=== PATIENT | female | born 1965 | race Caucasian/White ===

== ENCOUNTER 2016-05-19 07:06 | Inpatient (IN) | payer MEDICAID ==
--- NOTE | 2016-05-19 07:15 | EDPHY ---
H & P Time Seen by Provider: 05/19/16 07:14 HPI/ROS: CHIEF COMPLAINT: Shortness of breath, cough. HISTORY OF PRESENT ILLNESS: The patient is a 51-year-old female who presents with shortness of breath. She has had cold symptoms for the past 2 weeks including rhinorrhea, congestion, morning headaches, productive cough, and neck ache. She has not had a fever. She woke up today feeling dizzy and short of breath. The dizziness was described as a vertiginous spinning. She admits mild associated chest tightness. She does not use oxygen at home. She did not get a flu shot this year. No chills, palpitations, vomiting, diarrhea, urinary complaints. Patient has no known history of COPD, asthma, emphysema. REVIEW OF SYSTEMS: Aside from elements discussed in the HPI, a comprehensive 10-point review of systems was reviewed and is negative. PAST MEDICAL HISTORY: Denies. SOCIAL HISTORY: Smoker, no alcohol use, no illicit drugs. VITAL SIGNS: Reviewed by me. Not hypoxic, tachycardic, or febrile. GENERAL: Thin, resting comfortably in no obvious respiratory distress. HEENT: Atraumatic. Eyes: No icterus, no injection. Mouth: moist mucous membranes. No erythema or lesions. Mild tonsillar erythema. No exudates.Neck: supple with no adenopathy. No meningismus. LUNGS: Diminished breath sounds, especially at bases. Superior wheezes and wheezy cough. No rhonchi or rales. CARDIAC: Regular rate and rhythm, no rubs, murmurs or gallops. ABDOMEN: Soft, nontender, nondistended, bowel sounds normal. BACK: No CVA tenderness. EXTREMITIES: No trauma. No edema. Range of motion is normal throughout. NEURO: Alert and oriented, grossly nonfocal. SKIN: Warm and dry, no rash. PSYCHIATRIC: Normal mentation, no agitation. Portions of this note were transcribed by a medical transcriptionist. I personally performed a history, physical exam, medical decision making, and confirmed accuracy of information the transcribed note. Smoking Status: Current every day smoker Constitutional: Initial Vital Signs Temperature (C) 36.4 C 05/19/16 07:09 Heart Rate 72 05/19/16 07:09 Respiratory Rate 20 05/19/16 07:09 Blood Pressure 127/84 H 05/19/16 07:09 O2 Sat (%) 95 05/19/16 07:09 O2 Delivery Mode Room Air Allergies/Adverse Reactions: codeine Allergy (Verified 05/19/16 07:07) Home Medications: Medication Instructions Recorded AZITHROMYCIN [Z-PACK] 250 - 500 mg PO DAILY #6 tab 05/19/16 Medical Decision Making - Diagnostics EKG Interpretation: 12-LEAD EKG: Please see the full report in [facility]. My interpretation: Sinus rhythm Imaging: X-ray chest was obtained. I viewed the images myself on the PACS system. My interpretation of the images is: possible right lower lobe infiltrate. The radiologist interpretation is early infiltrate. I discussed the x-ray findings with the patient. ED Course/Re-evaluation: 3ml IH DuoNeb as well as albuterol nebulizer treatment administered. Patient reports some improvement in her shortness of breath. Influenza negative. Chest x-ray demonstrates airways disease as well as early right lower lobe infiltrate. On re-examination patient reports feeling improved, however, she still has significant inspiratory wheezing and diminished air movement. Received ceftriaxone and azithromycin to cover for pneumonia. Lactic acid: Patient has no evidence of sepsis: no fever, not tachycardic, not tachypneic, white count 7. Patient will be admitted to the hospitalist service, ANJALI Bautista. Differential Diagnosis: Differential diagnosis for the patient's shortness of breath was considered including but not limited to pulmonary infectious processes, COPD exacerbation, pulmonary emboli, pulmonary edema, congestive heart failure, and cardiac causes. Consult/Admit Bed Type: ANJALI Villanueva - Data Points Laboratory Results: Laboratory Results 05/19/16 08:30 05/19/16 08:30 05/19/16 05/19/16 05/19/16 09:25 08:30 08:30 WBC RBC Hgb Hct MCV MCH MCHC RDW Plt Count MPV Neut % (Auto) Lymph % (Auto) Sharkey % (Auto) Eos % (Auto) Baso % (Auto) Nucleat RBC Rel Count Absolute Neuts (auto) Absolute Lymphs (auto) Absolute Monos (auto) Absolute Eos (auto) Absolute Basos (auto) Absolute Nucleated RBC Immature Gran % Immature Gran # VBG Lactic Acid 1.0 mmol/L mmol/L (0.7-2.1) Sodium 143 mEq/L mEq/L (134-144) Potassium 4.4 mEq/L mEq/L (3.5-5.2) Chloride 109 mEq/L mEq/L (97-110) Carbon Dioxide 23 mEq/l mEq/l (22-31) Anion Gap 11 mEq/L mEq/L (8-16) BUN 15 mg/dL mg/dL (7-23) Creatinine 0.6 mg/dL mg/dL (0.6-1.0) Estimated GFR > 60 Glucose 102 mg/dL H mg/dL (70-100) Calcium 9.3 mg/dL mg/dL (8.5-10.4) Total Bilirubin Pending Conjugated Bilirubin Pending Unconjugated Bilirubin Pending AST Pending ALT Pending Alkaline Phosphatase Pending Troponin I < 0.012 ng/mL ng/mL (0-0.034) NT-Pro-B Natriuret Pep 117 pg/mL pg/mL (0-125) Total Protein Pending Albumin Pending Specimen Hemolysis 110 Influenza Typ A,B (DFA) 05/19/16 05/19/16 08:30 07:29 WBC 7.33 10^3/uL 10^3/uL (3.80-9.50) RBC 4.56 10^6/uL 10^6/uL (4.18-5.33) Hgb 15.0 g/dL g/dL (12.6-16.3) Hct 43.4 % % (38.0-47.0) MCV 95.2 fL fL (81.5-99.8) MCH 32.9 pg pg (27.9-34.1) MCHC 34.6 g/dL g/dL (32.4-36.7) RDW 12.2 % % (11.5-15.2) Plt Count 220 10^3/uL 10^3/uL (150-400) MPV 8.9 fL fL (8.7-11.7) Neut % (Auto) 61.0 % % (39.3-74.2) Lymph % (Auto) 28.0 % % (15.0-45.0) Sharkey % (Auto) 8.7 % % (4.5-13.0) Eos % (Auto) 1.2 % % (0.6-7.6) Baso % (Auto) 0.8 % % (0.3-1.7) Nucleat RBC Rel Count 0.0 % % (0.0-0.2) Absolute Neuts (auto) 4.47 10^3/uL 10^3/uL (1.70-6.50) Absolute Lymphs (auto) 2.05 10^3/uL 10^3/uL (1.00-3.00) Absolute Monos (auto) 0.64 10^3/uL 10^3/uL (0.30-0.80) Absolute Eos (auto) 0.09 10^3/uL 10^3/uL (0.03-0.40) Absolute Basos (auto) 0.06 10^3/uL 10^3/uL (0.02-0.10) Absolute Nucleated RBC 0.00 10^3/uL 10^3/uL (0-0.01) Immature Gran % 0.3 % % (0.0-1.1) Immature Gran # 0.02 10^3/uL 10^3/uL (0.00-0.10) VBG Lactic Acid Sodium Potassium Chloride Carbon Dioxide Anion Gap BUN Creatinine Estimated GFR Glucose Calcium Total Bilirubin Conjugated Bilirubin Unconjugated Bilirubin AST ALT Alkaline Phosphatase Troponin I NT-Pro-B Natriuret Pep Total Protein Albumin Specimen Hemolysis Influenza Typ A,B (DFA) NEGATIVE FOR FLU (NEGATIVE) Medications Given: Discontinued Medications Albuterol (Proventil Neb) 3 ml IH EDNOW ONE Stop: 05/19/16 07:32 Last Admin: 05/19/16 07:35 Dose: 3 ml Albuterol/Ipratropium (Duoneb) 3 ml IH EDNOW ONE Stop: 05/19/16 07:20 Last Admin: 05/19/16 07:19 Dose: 3 ml Sodium Chloride (Ns) 1,000 mls @ 0 mls/hr IV ONCE ONE PRN Reason: Wide Open Stop: 05/19/16 07:45 Last Admin: 05/19/16 08:30 Dose: 1,000 mls Ceftriaxone Sodium/Dextrose (Rocephin 1 Gm (Premix)) 50 mls @ 100 mls/hr IV EDNOW ONE PRN Reason: Protocol Stop: 05/19/16 09:47 Last Admin: 05/19/16 09:33 Dose: 50 mls Methylprednisolone Sodium Succinate (Solu-Medrol) 125 mg IVP EDNOW ONE Stop: 02/14/17 07:45 Last Admin: 05/19/16 08:30 Dose: 125 mg Departure - Departure Disposition: [facility] Inpatient Acute Clinical Impression: Shortness of breath, Right lower lobe infiltrate Condition: Fair Referrals: NONE *PRIMARY CARE P,. [Primary Care Provider] - As per Instructions Prescriptions: AZITHROMYCIN [Z-PACK] 250 - 500 mg PO DAILY #6 tab Report Scribed for: Maritza Quan Report Scribed by: Pedro Weaver Date of Report: 05/19/16 Time of Report: 07:38
[2016-05-19] MEDS ORDERED: IPRATROPIUM/ALBUTEROL 3 ML DEYVIAL ONE ×2 (07:17→21:33)
[2016-05-19] MEDS ORDERED: IPRATROPIUM/ALBUTEROL 3 ML DEYVIAL IH ONE (07:19)
[2016-05-19] MEDS ORDERED: ALBUTEROL 3 ML DEYVIAL IH ONE (07:31)
[2016-05-19] MEDS ORDERED: ALBUTEROL 3 ML DEYVIAL ONE (07:32)
[2016-05-19] MEDS ORDERED: NS 1,000 ML IV ONE (07:44)
[2016-05-19] MEDS ORDERED: methylPREDNISolone SOD SUCC 125 MG/2 ML VIAL IVP ONE (07:44)
--- NOTE | 2016-05-19 08:25 | CPEKG ---
Heart Rate: 60 RR Interval: 1000 P-R Interval: 196 QRSD Interval: 92 QT Interval: 464 QTC Interval: 464 P [place]: 36 QRS [place]: 62 T Wave [place]: 58 EKG Severity - NORMAL ECG - EKG Impression: SINUS RHYTHM Electronically Signed By: Maritza Quan 19-May-2016 21:53:58
[2016-05-19 08:41] LABS: % IMMATURE GRANULYOCYTES 0.3 % (0.0-1.1); ABSOLUTE IMMATURE GRANULOCYTES 0.02 10^3/uL (0.00-0.10); ADD DIFF? NO; ADD MORPH? NO; ADD SCAN? NO; ATYPICAL LYMPHOCYTE FLAG 0 (0-99); FRAGMENT RBC FLAG 0 (0-99); HEMATOCRIT 43.4 % (38.0-47.0); LEFT SHIFT FLG 0 (0-99); LIPEMIA HEMOLYSIS FLAG 90 (0-99); MEAN CELL HEMOGLOBIN 32.9 pg (27.9-34.1); MEAN CELL HEMOGLOBIN CONCENTR. 34.6 g/dL (32.4-36.7); MEAN CELL VOLUME 95.2 fL (81.5-99.8); MEAN PLATELET VOLUME 8.9 fL (8.7-11.7); PLATELET CLUMPS FLAG 10 (0-99); PLATELET COUNT 220 10^3/uL (150-400); RED BLOOD CELL COUNT 4.56 10^6/uL (4.18-5.33); RED CELL DISTRIBUTION WIDTH 12.2 % (11.5-15.2)
--- NOTE | 2016-05-19 08:59 | DX ---
Upright PA and Lateral Chest, 2 Views Total, at 8:09 AM Clinical History: 51-year-old female with shortness of breath and possible pneumonia. ICD 10 Diagnostic Code: R05. Comparison Study: None. Findings: There is mild alfonzo- and infrahilar bronchial wall thickening. At the posterior medial righ t lung base there is more focal bronchovascular crowding, which may reflect some subsegmental atelec tasis or an early infiltrate. The cardiac and mediastinal silhouette size is normal. There is no ple ural effusion, peripheral interstitial edema, or pneumothorax. The osseous structures are age-approp riate. Impression: Perihilar bronchitis with a possible early infiltrate versus subsegmental atelectasis in the posterior medial right lower lobe.
[2016-05-19] MEDS ORDERED: AZITHROMYCIN IV 500 MG in D5W 250 ML IV ONE (09:18)
[2016-05-19 09:23] LABS: ANION GAP 11 mEq/L (8-16); CALCIUM 9.3 mg/dL (8.5-10.4); CARBON DIOXIDE 23 mEq/l (22-31); CHLORIDE 109 mEq/L (97-110); CREATININE 0.6 mg/dL (0.6-1.0); GLOMERULAR FILTRATION RATE > 60; GLUCOSE 102 mg/dL (70-100); POTASSIUM 4.4 mEq/L (3.5-5.2); SODIUM 143 mEq/L (134-144); SPECIMEN HEMOLYSIS 110
[2016-05-19 09:30] LABS: TROPONIN I < 0.012 ng/mL (0-0.034)
[2016-05-19] MEDS ORDERED: ONDANSETRON 4 MG/2 ML VIAL IVP PRN (09:58)
[2016-05-19] MEDS ORDERED: ALBUTEROL 3 ML DEYVIAL IH PRN (09:58)
[2016-05-19] MEDS ORDERED: ONDANSETRON DISINTEGRATING 4 MG TAB PO PRN (09:58)
[2016-05-19] MEDS ORDERED: NS 1,000 ML IV SCH (10:00)
[2016-05-19 10:03] LABS: ALANINE AMINOTRANSFERASE 49 IU/L (9-52); ALBUMIN 4.2 g/dL (3.5-5.0); ALKALINE PHOSPHATASE 66 IU/L (38-126); ASPARTATE AMINOTRANSFERASE 44 IU/L (14-46); BILIRUBIN,TOTAL 0.8 mg/dL (0.1-1.4); BILIRUBIN-CONJUGATED 0.5 mg/dL (0.0-0.5); BILIRUBIN-UNCONJUGATED 0.3 mg/dL (0.0-1.1); TOTAL PROTEIN 7.9 g/dL (6.3-8.2)
--- NOTE | 2016-05-19 10:27 | GHP ---
[f rep st] HISTORY AND PHYSICAL DATE OF ADMISSION: 05/19/2016 CHIEF COMPLAINT: Shortness of breath. HISTORY OF PRESENT ILLNESS: This is a 51-year-old female, who has had about 2 weeks of symptoms of upper and lower respiratory infection including headaches, runny nose, sore throat, productive cough . She has not had any fevers. Today, she woke up, feeling more short of breath and wheezing thus s he presented to the emergency department. She is a current smoker about half pack a day. She does not have any history of known lung disease. She did not take any [id number] cold medications for her symptoms. In the emergency department, she received breathing treatments and Solu-Medrol, f elt better afterwards. PAST MEDICAL/SURGICAL HISTORY: One episode of pneumonia which required hospitalization. MEDICATIONS: Please see medication reconciliation. ALLERGIES: Codeine causes her to itch. FAMILY HISTORY: She does not know her family well but does not think there is any lung disease SOCIAL HISTORY: She is currently working in the [employer] program. She quit drinking e ntirely. She smokes about half pack a day but declines a nicotine patch. REVIEW OF SYSTEMS: A 10-point review of systems is conducted and is negative except per HPI. PHYSICAL EXAM: VITAL SIGNS: Blood pressure is 103/67, heart rate 63, respiration rate 18, saturati ng 95% on room air, temperature 36.4. GENERAL: The patient is a pleasant female who appears uncomf ortable, coughing, otherwise in some mild distress. HEENT: Shows her to be normocephalic, atraumat ic. She is wearing a mask. NECK: Shows her to have no cervical lymphadenopathy. CARDIOVASCULAR: Regular rate and rhythm. No murmurs, rubs, or gallops. She has mildly muffled S1-S2. PULMONARY: S hows her to be in mild respiratory distress. She has inspiratory and expiratory wheezes. She has d iffuse breath movement. She does not have any rales or rhonchi. ABDOMEN: Soft, nontender, nondist ended. SKIN: Shows no rash. : Exam shows no [place]. NEUROLOGIC: Exam shows her to be alert an d oriented x3. She is moving all extremities. PSYCHIATRIC: Exam shows normal mood and affect. LABS: White count is normal at 7.33. Lactate is 1.0. Basic metabolic panel is unremarkable. LFTs are pending. Troponin is negative. She is negative for flu. DATA: 1. Chest x-ray, which I personally viewed and interpreted, shows mild right lower lobe pneumonia. 2. EKG, which I personally reviewed and interpreted, shows sinus rhythm. There are no acute ischem ic changes. This is normal. 3. I discussed this with Dr. Quan, she is negative for influenza. Will plan to admit for obser vation. IMPRESSION AND PLAN: This is a 51-year-old female with likely right lower lobe pneumonia. 1. Possible right lower lobe pneumonia: Notably no white count or fever though she does have an in filtrate on her x-ray. Given her symptoms I think it is reasonable to treat her for community-acqui red pneumonia. She has a history of tobacco use. Will also treat for chronic obstructive pulmonary disease exacerbation with her wheezes and diminished air movement. Plan will be to treat her with Rocephin, azithromycin, prednisone, nebulizer treatments. 2. Chronic obstructive pulmonary disease exacerbation: This is suspected. She is not hypoxic. Tr eatment as above. 3. Tobacco use: Declined nicotine patch. I have counseled her on cessation. 4. Core status: She is full code, full tube. She would like Radha Samuels or her marketing sales consultant to ma ke decisions for her should she not be able to. She does not have a living will. 5. Venous thromboembolism risk: She is low risk as obs. Would consider starting if she has a prol onged hospitalization. /[id number]/MODL
[2016-05-19] MEDS: IPRATROPIUM/ALBUTEROL 3 ML DEYVIAL IH SCH ×3 (12:13→21:42)
[2016-05-19] MEDS: ACETAMINOPHEN 325 MG TAB PO PRN ×2 (12:51→19:29)
[2016-05-19] MEDS: guaiFENesin 600 MG TAB.ER PO SCH ×2 (12:52→19:29)
[2016-05-19] MEDS: predniSONE 20 MG TAB PO SCH (12:52)
[2016-05-20] MEDS: IPRATROPIUM/ALBUTEROL 3 ML DEYVIAL IH SCH ×4 (05:40→21:18)
[2016-05-20 05:43] LABS: % IMMATURE GRANULYOCYTES 0.3 % (0.0-1.1); ABSOLUTE IMMATURE GRANULOCYTES 0.04 10^3/uL (0.00-0.10); ADD DIFF? NO; ADD MORPH? NO; ADD SCAN? NO; ATYPICAL LYMPHOCYTE FLAG 10 (0-99); FRAGMENT RBC FLAG 0 (0-99); LEFT SHIFT FLG 0 (0-99); LIPEMIA HEMOLYSIS FLAG 90 (0-99); MEAN CELL HEMOGLOBIN 33.1 pg (27.9-34.1); MEAN CELL HEMOGLOBIN CONCENTR. 35.1 g/dL (32.4-36.7); MEAN CELL VOLUME 94.1 fL (81.5-99.8); MEAN PLATELET VOLUME 9.4 fL (8.7-11.7); PLATELET CLUMPS FLAG 20 (0-99); PLATELET COUNT 229 10^3/uL (150-400); RED BLOOD CELL COUNT 3.93 10^6/uL (4.18-5.33)
[2016-05-20 06:08] LABS: ANION GAP 7 mEq/L (8-16); CARBON DIOXIDE 21 mEq/l (22-31); CHLORIDE 111 mEq/L (97-110); CREATININE 0.6 mg/dL (0.6-1.0); GLOMERULAR FILTRATION RATE > 60; GLUCOSE 114 mg/dL (70-100); POTASSIUM 4.4 mEq/L (3.5-5.2); SODIUM 139 mEq/L (134-144)
[2016-05-20] MEDS: guaiFENesin 600 MG TAB.ER PO SCH ×2 (10:49→19:49)
[2016-05-20] MEDS: predniSONE 20 MG TAB PO SCH (10:49)
[2016-05-20] MEDS: AZITHROMYCIN 250 MG TAB PO SCH (10:49)
--- NOTE | 2016-05-20 15:01 | HOSPPROG ---
Hospitalist Progress Note Assessment/Plan: 51 yo F with hx of copd presenting with pna and copd exacerbation # pna: on personal review of cxr noted to have RLL pna, started on ctx/ azithromycin and clinically improved slightly overnight. Continues to have significant fatigue and sob with even minimal exertion however. Will continue current mgmt, transition to oral abx in am # copd with acute exacerbation: no prior known hx of copd however longstanding tobacco use history and patient noted to have wheeze on arrival, this has improved, continue current regimen including nebs and short course of prednisone # leukocytosis: likely driven by steroids, monitoring # dispo: dc home # patient new to my care, old records reviewed and summarized as above IP status, not safe for dc home given significant dyspnea on exertion Subjective: no significant overnight events, patient still feeling run down Objective: Vital Signs Temp Pulse Resp BP Pulse Ox 36.8 C 74 14 117/76 94 05/20/16 11:22 05/20/16 11:22 05/20/16 11:22 05/20/16 11:22 05/20/16 11:22 Laboratory Results 05/20/16 04:39 05/20/16 04:39 05/19/16 05/20/16 05/21/16 05:59 05:59 05:59 Intake Total 1550 Balance 1550 awake alert nad anicteric op clear rrr no mrg dec bs throughout soft nt nd no cce warm dry well perfused ICD10 Worksheet Patient Problems: Problems Problem Status Onset Shortness of breath Acute
[2016-05-21] MEDS: IPRATROPIUM/ALBUTEROL 3 ML DEYVIAL IH SCH ×4 (05:57→21:45)
[2016-05-21] MEDS: AZITHROMYCIN 250 MG TAB PO SCH (08:17)
[2016-05-21] MEDS: guaiFENesin 600 MG TAB.ER PO SCH ×2 (08:17→20:26)
[2016-05-21] MEDS: predniSONE 20 MG TAB PO SCH (08:17)
[2016-05-21] MEDS ORDERED: BENZONATATE 100 MG CAP PO PRN (10:22)
[2016-05-21] MEDS ORDERED: NAPROXEN SODIUM 220 MG TAB PO PRN (10:22)
[2016-05-21] MEDS: CETIRIZINE 10 MG TAB PO SCH (12:02)
--- NOTE | 2016-05-21 17:30 | HOSPPROG ---
Hospitalist Progress Note Assessment/Plan: Assessment/Plan: 51 yo F p/w acute copd exacerbation in setting of RLL pneumonia # pna: evidenced by RLL infiltrate on cxr (personally interpreted) w/ pulm sx, D #2/5 ctx/azithromycin # copd with acute exacerbation: no prior known hx of copd however longstanding tobacco use history and patient noted to have wheeze on arrival - remains significantly wheezy w/ bronchial breath sounds, unresolved/unstable - cont scheduled duonebs, cont D#2/5 prednisone, add tessalon PRN/cetirizine diet. regular ppx. low risk, SCDs code. full dispo. ADD 05/22, pending clinical stabilization of above, COPD clinically unresolved at this time Subjective: Patient reports that she still feels symptomatically weak, short of breath, wheezing Objective: Vital Signs Temp Pulse Resp BP Pulse Ox 36.8 C 84 18 112/83 H 94 05/21/16 08:00 05/21/16 11:20 05/21/16 11:20 05/21/16 08:00 05/21/16 11:20 05/20/16 05/21/16 05/22/16 05:59 05:59 05:59 Intake Total 250 Balance 250 - Pending Discharge Pending Discharge Within 24 Hours: Yes Pending Discharge Date: 05/22/16 Pending Discharge Time: 11:00 - Physical Exam Constitutional: appears nourished, not in pain, chronically ill appearing, uncomfortable Cardiovascular: regular rate and rhythym, no murmur, rub, or gallop Respiratory: expiratory wheeze, bronchial breath sounds, rhonchi (Right base on inspiration), No inspiratory crackles Gastrointestinal: normoactive bowel sounds, soft, non-tender abdomen, no palpable masses Neurologic: AAOx3, sensation intact bilaterally, No facial droop Psychiatric: interacting appropriately, not anxious, not encephalopathic, thought process linear ICD10 Worksheet Patient Problems: Problems Problem Status Onset Shortness of breath Acute
[2016-05-21] MEDS ORDERED: IPRATROPIUM/ALBUTEROL 3 ML DEYVIAL IH PRN (22:10)
[2016-05-22 08:44] VITALS: BP 121/89; PULSE 61; RESP 18; TEMP 97.4; O2SAT 93
[2016-05-22] MEDS: CETIRIZINE 10 MG TAB PO SCH (09:14)
[2016-05-22] MEDS: predniSONE 20 MG TAB PO SCH (09:14)
[2016-05-22] MEDS: guaiFENesin 600 MG TAB.ER PO SCH (09:14)
[2016-05-22] MEDS: AZITHROMYCIN 250 MG TAB PO SCH (09:15)
[2016-05-22] MEDS ORDERED: ALBUTEROL 60 PUFFS/8 GM MDI IH PRN (10:32)
--- NOTE | 2016-05-22 10:41 | PDDCSUM ---
Discharge Summary Discharge Summary: DISCHARGE SUMMARY FOLLOW-UP ITEMS: Establish primary care, get outpatient pulmonary function tests DATE OF ADMISSION: 05/19/2016 DATE OF DISCHARGE: 05/22/2016 DISCHARGE DIAGNOSES: 1. Acute COPD exacerbation 2. Pneumonia CONSULTATIONS: None PROCEDURES / IMAGING: Chest x-ray demonstrating right lower lobe infiltrate CHIEF COMPLAINT: Shortness of breath SUBJECTIVE: Patient feels like her shortness of breath has improved, cough improved PHYSICAL EXAM ON DISCHARGE: Systolic blood pressure is 1/10, heart rate 60, afebrile overnight, satting well on room air, faint inspiratory wheezes in the bilateral bases right greater than left, with faint expiratory wheezes bilateral mid posterior segments but no bronchial breath sounds improved air movement from day prior LABS ON DISCHARGE: None HOSPITAL COURSE BY PROBLEM: 1. Acute COPD exacerbation. Patient has no prior history of COPD however she has longstanding tobacco use history and she was noted to have significant wheeze and bronchial breath sounds on arrival. She was initiated on prednisone , scheduled duo nebs, antibiotics and she continued to experience significant wheezing and bronchial breath sounds on 05/21. After continuing treatment, her air movement has improved and she can follow up at [facility] and undergo outpatient pulmonary function testing. We also recommend that she discontinue her smoking and continue to work on this as an outpatient. 2. Acute pneumonia. Evidenced by right lower lobe infiltrate on chest x-ray in addition to pulmonary symptoms. This is most likely precipitating cause of her COPD exacerbation. Patient was initiated on IV ceftriaxone and azithromycin, she has been transitioned to oral levofloxacin therapy. She will continue antibiotic for a total 5 day burst. DISCHARGE MEDICATIONS: Please see official discharge medication reconciliation sheet in chart , levofloxacin 750 once daily, prednisone 40 mg once daily, albuterol inhaler as needed, Tessalon Perles as needed. DISCHARGE INSTRUCTIONS: Patient should discontinue smoking and [facility] as scheduled.
== END 2016-05-22 12:35 | disposition home or self-care (01) | DRG 194 ==
LOC: F3E 11:02 → OBSVTOIN 05-20 14:51 → INTOOBSV 05-20 14:57
PROVIDERS: ADMIT Student in an Organized Health Care Education/Training Program; ATTEND Student in an Organized Health Care Education/Training Program
DX: J18.9 Pneumonia, unspecified organism (principal); J44.1 Chronic obstructive pulmonary disease with (acute) exacerbation; Z72.0 Tobacco use
CPT/HCPCS: 96365; G0378; J0456; J0696

== ENCOUNTER 2016-06-18 21:14 | Emergency (ER) | payer OTHER, MEDICAID ==
[2016-06-18 21:24] VITALS: BP 123/75; PULSE 75; RESP 20; TEMP 98.4; O2SAT 95
[2016-06-18] MEDS ORDERED: SKIN ADHESIVE (DERMABOND) 1 EACH TP ONE (21:43)
--- NOTE | 2016-06-18 22:08 | EDPHY ---
H & P Time Seen by Provider: 06/18/16 21:36 HPI/ROS: This is a 50 year old female presenting to emergency department complaining of thumb laceration. 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 Tetanus vaccine up-to-date. Denies any other complaints REVIEW OF SYSTEMS: Constitutional: (-)fever Cardiac: (-)chest pain Musculoskeletal: (+)right thumb laceration Skin: (+)right thumb laceration Neurological: (-) headache Psych: (-)anxiety (-)SI/HI Smoking Status: Current every day smoker Physical Exam: CONSTITUTIONAL: patient appeared well nourished, non-ill appearing and normally developed. No acute distress. Vital signs as documented. HEENT: NCAT NECK: FROM RESP: Non-labored resp effort NEURO: AAOx3 EXTREMITIES: (+)superficial avulsion laceration tip of right thumb non- suturable (+)FROM without difficulty. (+)cms intact SKIN: (+)superficial avulsion laceration tip of right thumb non-suturable (+) FROM without difficulty. (+)cms intact PSYCH: Normal affect, calm, no distress Constitutional: Initial Vital Signs Temperature (C) 36.9 C 06/18/16 21:21 Heart Rate 75 06/18/16 21:21 Respiratory Rate 20 06/18/16 21:21 Blood Pressure 123/75 H 06/18/16 21:21 O2 Sat (%) 95 06/18/16 21:21 O2 Delivery Mode Room Air Allergies/Adverse Reactions: codeine Allergy (Verified 05/19/16 07:07) Home Medications: Medication Instructions Recorded Naproxen Sodium [Aleve 220 MG (*)] 220 - 440 mg PO BID PRN 05/19/16 Acetaminophen [Tylenol 325mg (*)] 650 mg PO Q4HRS PRN #0 tab 05/22/16 Albuterol [Proventil Inhaler HFA 2 puffs IH Q4HRS PRN #1 mdi 05/22/16 (*)] Benzonatate [Tessalon Pearles] 200 mg PO TID PRN #30 cap 05/22/16 Cetirizine [ZyrTEC 10 mg (*)] 10 mg PO DAILY tab 05/22/16 levOFLOXACIN [Levofloxacin] 750 mg PO DAILY #1 tablet 05/22/16 predniSONE 40 mg PO DAILY #2 tablet 05/22/16 Medical Decision Making Procedures: Procedure: Laceration repair dermabond Verbal consent was obtained from the patient . superficial laceration on the right tip of thumb. The wound was irrigated. There were no deep structures involved. The wound was repaired using dermabond. The procedure was performed by myself. A dressing was applied by nurse ED Course/Re-evaluation: This is a 50 year old female presenting to emergency department complaining of thumb laceration. 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 Tetanus vaccine up-to-date. Discussed plan of care: Wound irrigation, wound repair with Dermabond. Clinical impression thumb laceration, other differential diagnosis considered but not limited to thumb dislocation, nail bed laceration and tendon laceration Differential Diagnosis: Clinical impression thumb laceration, other differential diagnosis considered but not limited to thumb dislocation, nail bed laceration and tendon laceration Departure - Departure Disposition: Home, Routine, Self-Care Clinical Impression: Thumb laceration Qualifiers: Encounter type: initial encounter Laterality: right Qualified Code(s): S61.011A - Laceration without foreign body of right thumb without damage to nail , initial encounter Condition: Good Instructions: Laceration (ED), Skin Adhesive Care (ED) Additional Instructions: Discussed discharge instructions 1. The initial dressing on for 24 hours, then daily dressing changes for the next 3-5 days 2. Monitor for any signs of infection such as: Increased redness red streak swelling drainage, if any of these should occur please return emergency department 3. No antibiotics are needed at this time, and as you indicated her tetanus shot is up-to-date 4. you can take ibuprofen as needed 600 mg every 6-8 hours as needed 5. you had been given the number for [facility] you can follow up with the clinic as needed. Patient verbalized understanding of discharge instructions Referrals: NONE *PRIMARY CARE P,. [Primary Care Provider] - As per Instructions [facility],. [Clinic] - As per Instructions Stand Alone Forms: Work Excuse
== END 2016-06-18 22:15 | disposition home or self-care (01) ==
PROC: 0HQFXZZ Repair Right Hand Skin, External Approach (ICD-10-PCS; principal; 2016-06-18)
DX: S61.011A Laceration without foreign body of right thumb without damage to nail, initial encounter (principal); F17.200 Nicotine dependence, unspecified, uncomplicated; W26.0XXA Contact with knife, initial encounter; Y92.000 Kitchen of unspecified non-institutional (private) residence as the place of occurrence of the external cause; Y93.89 Activity, other specified

== ENCOUNTER 2016-08-12 15:42 | Emergency (ER) | payer MEDICAID, OTHER ==
[2016-08-12 15:47] VITALS: BP 135/98; PULSE 81; RESP 20; TEMP 98.2; O2SAT 96
--- NOTE | 2016-08-12 15:51 | EDPHY ---
H & P Time Seen by Provider: 08/12/16 15:49 HPI/ROS: CHIEF COMPLAINT: Low back pain HISTORY OF PRESENT ILLNESS: This patient is a 51 year old female who presents to the Emergency Department complaining of acute low back pain beginning five days prior to arrival and remaining constant over time. 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 She denies radiation of pain or paresthesias to her legs. No bowel or urinary complaints. She reports a remote history of lower back pain 21 years ago. No additional pertinent medical history. REVIEW OF SYSTEMS: Constitutional: No fever, no chills Eyes: No visual changes ENT: No sore throat Respiratory: No cough, no shortness of breath Cardiac: No chest pain Gastrointestinal: No nausea, no vomiting, no abdominal pain Genitourinary: No hematuria, no dysuria Musculoskeletal: +low back pain, no leg pain or swelling Skin: No rash Neurological: No headache, no numbness, no weakness Psychiatric: No depression Past Medical/Surgical History: Remote history of low back pain. No current PCP. 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 Smoking Status: Current every day smoker Physical Exam: General Appearance: Alert, appears in pain with movement Eyes: Pupils equal and round, no conjunctival pallor ENT, Mouth: Mucous membranes moist Neck: Normal inspection Back: Paraspinous lumbar tenderness to palpation Gastrointestinal: Abdomen is soft and non- tender Neurological: A&O, motor 5/5 including dorsiflexion of the feet and 1st toes, 2 + patellar reflexes bilaterally, slow and steady gait, appears in pain with walking Skin: Warm and dry, no rash Extremities: Nontender, no pedal edema Psychiatric: Mood and affect normal Constitutional: Initial Vital Signs Temperature (C) 36.8 C 08/12/16 15:43 Heart Rate 81 08/12/16 15:43 Respiratory Rate 20 08/12/16 15:43 Blood Pressure 135/98 H 08/12/16 15:43 O2 Sat (%) 96 08/12/16 15:43 O2 Delivery Mode Room Air Allergies/Adverse Reactions: codeine Allergy (Verified 02/14/17 07:07) Home Medications: Medication Instructions Recorded Naproxen Sodium [Aleve 220 MG (*)] 220 - 440 mg PO BID PRN 05/19/16 Acetaminophen [Tylenol 325mg (*)] 650 mg PO Q4HRS PRN #0 tab 05/22/16 Albuterol [Proventil Inhaler HFA 2 puffs IH Q4HRS PRN #1 mdi 05/22/16 (*)] Benzonatate [Tessalon Pearles] 200 mg PO TID PRN #30 cap 05/22/16 Cetirizine [ZyrTEC 10 mg (*)] 10 mg PO DAILY tab 05/22/16 levOFLOXACIN [Levofloxacin] 750 mg PO DAILY #1 tablet 05/22/16 predniSONE 40 mg PO DAILY #2 tablet 05/22/16 Cyclobenzaprine [Flexeril 10 MG 10 mg PO TID PRN #15 tab 08/12/16 (*)] Medical Decision Making ED Course/Re-evaluation: This 51 year old female presents with acute low back pain beginning Wednesday and remaining persistent over time without associated paresthesias or additional complaints. She has paraspinous lumbar tenderness on exam and appears in pain with walking and movement. I discussed with her appropriate management of low back strain at home, including: Ibuprofen use three times daily, Lidoderm patch, and Flexeril. She expresses agreement to this treatment plan. She will schedule a follow-up appointment with [facility] for further evaluation and long-term treatment options. 1000mg PO Tylenol administered and Lidoderm patch placed prior to discharge. Differential Diagnosis: The differential diagnosis for the patient's back pain included but was not limited to musculoskeletal pain, epidural abscess, herniated disk, spinal fracture, and intra-abdominal causes including urinary system. - Data Points Medications Given: Discontinued Medications Acetaminophen (Tylenol) 1,000 mg PO EDNOW ONE Stop: 08/12/16 16:11 Last Admin: 08/12/16 16:28 Dose: 1,000 mg Lidocaine (Lidoderm 5%) 1 ea TD EDNOW ONE Stop: 08/13/16 16:12 Last Admin: 08/12/16 16:29 Dose: 1 ea Departure - Departure Disposition: Home, Routine, Self-Care Clinical Impression: Low back strain Qualifiers: Encounter type: initial encounter Qualified Code(s): S39.012A - Strain of muscle, fascia and tendon of lower back, initial encounter Condition: Good Instructions: Low Back Strain (ED) Additional Instructions: 1. Take 3 tablets of Ibuprofen three times daily (every 6 hours) for pain. 2. Use the Lidoderm patch as prescribed for pain. 3. Take Flexeril as prescribed, as needed to relax your muscles. This causes drowsiness, so avoid taking this when working or driving. 4. Follow-up with a primary care provider for further evaluation. You can be seen at [facility]. 5. Return to the Emergency Department with severe pain, loss of bladder or bowel control, numbness or tingling in your legs, or for other serious concerns. Referrals: [facility],. [Clinic] - As per Instructions Prescriptions: Cyclobenzaprine [Flexeril 10 MG (*)] 10 mg PO TID PRN #15 tab PRN Reason: Spasms Report Scribed for: Cathy Jean-Baptiste Report Scribed by: Bobbi Riley Date of Report: 08/12/16 Time of Report: 15:51 Physician Review and Approval Statement: 08/12/16 15:51 Portions of this note were transcribed by a resident medical officer. I personally performed a history, physical exam, medical decision making, and confirmed accuracy of information the transcribed note.
[2016-08-12] MEDS ORDERED: ACETAMINOPHEN 325 MG TAB PO ONE (16:10)
[2016-08-12] MEDS ORDERED: LIDOCAINE 5% 1 EA PATCH TD ONE (16:16)
[2016-08-12] MEDS ORDERED: ACETAMINOPHEN 500 MG TAB ONE (16:16)
[2016-08-13] MEDS ORDERED: LIDOCAINE 5% 1 EA PATCH TD ONE (16:11)
== END 2016-08-12 16:29 | disposition home or self-care (01) ==
DX: S39.012A Strain of muscle, fascia and tendon of lower back, initial encounter (principal); F17.200 Nicotine dependence, unspecified, uncomplicated; X58.XXXA Exposure to other specified factors, initial encounter; Y93.89 Activity, other specified

== ENCOUNTER 2017-02-03 08:35 | Emergency (ER) | payer MEDICAID, OTHER ==
[2017-02-03 08:41] VITALS: TEMP 97.7
[2017-02-03] MEDS ORDERED: IPRATROPIUM/ALBUTEROL 3 ML DEYVIAL IH ONE (09:07)
--- NOTE | 2017-02-03 09:21 | EDPHY ---
General - History Smoking Status: Current every day smoker Narrative: CHIEF COMPLAINT: Cough, congestion, wheezing, shortness of breath HISTORY OF PRESENT ILLNESS: Patient complains of several days duration of cough, wheezing, congestion, shortness of breath, body aches, fevers and chills. Sudden onset. Constant duration. She has tried Robitussin [id number] with no improvement. Symptoms are moderate to severe. Worse in the morning and when laying down. Minimal improvement throughout the day. No actual chest pain. No dyspnea or syncope. No abdominal urinary complaints. She does have a runny nose and sinus congestion with some sore throat no other associated complaints or modifying factors. REVIEW OF SYSTEMS: Ten systems reviewed and are negative unless otherwise noted in the HPI PCP: None SPECIALISTS: None PAST MEDICAL HISTORY: Hepatitis C without treatment PAST SURGICAL HISTORY: None SOCIAL HISTORY: Daily smoker. Occasional alcohol. Occasional marijuana user. No other illicit substances FAMILY HISTORY: Noncontributory EXAMINATION General Appearance: Alert, no distress Head: normocephalic, atraumatic Eyes: Pupils equal and round, no conjunctival pallor or injection ENT, Mouth: Mucous membranes moist. Uvula midline. Maxillary ridge is edentulous. Minimal posterior erythema. No exudate. No edema. The airway is widely patent Neck: Normal inspection, supple, non-tender. Midline trachea Respiratory: Scattered but symmetric wheezing. Mild rhonchi. No crackles. No consolidation. No diminishment. No retractions or distress Cardiovascular: Regular rate and rhythm doc Gastrointestinal: Abdomen is soft and nontender Back: non-tender, no bony abnormalities Neurological: A&O, nonfocal, normal gait Skin: Warm and dry, no rash. No petechiae Extremities: Nontender, no pedal edema Psychiatric: Mood and affect normal DIFFERENTIAL DIAGNOSES: Including but not limited to community-acquired pneumonia, bronchitis, influenza , viral infection, upper respiratory infection MDM: 9:05 a.m. Cough, congestion, wheezing, body aches for several days. No chest pain. No shortness of breath. Vital signs are stable. She is in no acute distress. She is wheezing, thus I have ordered a DuoNeb treatment. I have ordered a flu swab. She does not require supplemental oxygen. Do not feel she warrants laboratory studies at this time. Chest x-ray is pending. 9:40 a.m. Patient re-evaluated. Lungs are improved after the nebulizer treatment but is now less wheezing. She states that she is feeling much better. Chest x-ray does not show any evidence of pneumonia. There is evidence of bronchitis and atelectasis. Influenza swab pending. 10:05 a.m. Influenza swabs are negative. This is likely acute bronchitis. Vitals remain clear. Given that she is a smoker, we discussed treatment with antibiotics. We discussed another dose of Decadron tomorrow, with 1st dose given here. She has an albuterol inhaler. 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 We discussed strict ED precautions. We discussed follow up with primary care physician in the next few days. She is comfortable this plan and discharged in stable condition. (Mukesh Marin) Medical Decision Making: PHYSICIAN DOCUMENTATION: The patient was evaluated and managed by the Physician Inspector Glass Or Mirror. My co- signature indicates that I have reviewed this chart and I agree with the findings and plan of care as documented. I am the secondary supervising physician. (Isac Mills) - Diagnostics Imaging Results: Imaging Impressions Chest X-Ray 02/03/17 09:07 Impression: Bronchitis and minimal bibasilar atelectasis. No pneumonia. - Objective Vital Signs: Initial Vital Signs Temperature (C) 36.5 C 02/03/17 08:39 Heart Rate 63 02/03/17 08:39 Respiratory Rate 18 02/03/17 08:39 Blood Pressure 125/76 H 02/03/17 08:39 O2 Sat (%) 96 02/03/17 08:39 O2 Delivery Mode Room Air Allergies/Adverse Reactions: codeine Allergy (Verified 02/03/17 08:37) Home Medications: Medication Instructions Recorded Albuterol [Proventil Inhaler HFA 2 puffs IH Q4HRS PRN #1 mdi 05/22/16 (*)] Azithromycin [Zithromax] 250 mg PO DAILY #6 tab 02/03/17 Benzonatate [Tessalon Pearles (RX)] 100 mg PO Q8 PRN #15 cap 02/03/17 Dexamethasone [Decadron 4 MG (*)] 8 mg PO DAILY #2 tab 02/03/17 Laboratory Results: 02/03/17 09:15 Nasal Influenza A PCR NEGATIVE FOR FLU A (NEGATIVE) Nasal Influenza B PCR NEGATIVE FOR FLU B (NEGATIVE) Medications Given: Discontinued Medications Albuterol/Ipratropium (Duoneb) 6 ml IH EDNOW ONE Stop: 02/03/17 09:08 Last Admin: 02/03/17 09:10 Dose: 6 ml Dexamethasone (Decadron) 8 mg PO EDNOW ONE Stop: 02/03/17 09:49 Last Admin: 02/03/17 10:05 Dose: 8 mg Departure - Departure Disposition: Home, Routine, Self-Care Clinical Impression: Tobacco dependence Acute bronchitis Qualifiers: Bronchitis organism: unspecified organism Qualified Code(s): J20.9 - Acute bronchitis, unspecified Condition: Good Instructions: How to Stop Smoking (ED), Acute Bronchitis (ED), Community Acquired Pneumonia (ED) Additional Instructions: 1. Medications as prescribed to completion 2. Ibuprofen 600 mg every 8 hours as needed 3. Increase fluid intake 4. Recommend smoking cessation 5. Follow up with the on-call physician information we provided 6. ED precautions as discussed Referrals: NONE *PRIMARY CARE P,. [Primary Care Provider] - As per Instructions [facility],. [Clinic] - As per Instructions Aylin Warren MD [Medical Doctor] - As per Instructions Stand Alone Forms: Work Excuse Prescriptions: Azithromycin [Zithromax] 250 mg PO DAILY #6 tab Benzonatate [Tessalon Pearles (RX)] 100 mg PO Q8 PRN #15 cap PRN Reason: Cough, Mild Dexamethasone [Decadron 4 MG (*)] 8 mg PO DAILY #2 tab
[2017-02-03 09:38] VITALS: RESP 20
[2017-02-03] MEDS ORDERED: DEXAMETHASONE 4 MG TAB PO ONE (09:48)
[2017-02-03 10:08] VITALS: BP 135/80; PULSE 69; O2SAT 96
== END 2017-02-03 10:16 | disposition home or self-care (01) ==
DX: J20.9 Acute bronchitis, unspecified (principal); F17.200 Nicotine dependence, unspecified, uncomplicated